=== PATIENT | female | born 1960 | race Caucasian/White ===

== ENCOUNTER 2019-03-21 09:56 | Inpatient (IN) | payer OTHER ==
[~2019-03-21] VITALS: Ht 177.8 cm; Wt 158.5 kg
[2019-03-21 10:05] VITALS: BP 166/78
[2019-03-21 11:06] LABS: ABSOLUTE BASOPHILS 0.1 thou/uL (0.0-0.2); ABSOLUTE EOSINOPHILS 0.2 thou/uL (0.0-0.7); ABSOLUTE LYMPHOCYTES 1.6 thou/uL (0.8-5.3); ABSOLUTE MONOCYTES 0.5 thou/uL (0.0-1.2); ABSOLUTE NEUTROPHILS 6.7 thou/uL (1.6-8.1); BASOPHILS 1.1 %; EOSINOPHILS 1.8 %; HEMATOCRIT 44.1 % (37.0-47.0); HEMOGLOBIN 14.5 gm/dL (12.0-15.0); LYMPHOCYTES 17.5 %; MCH 28.4 pg (26.0-34.0); MCHC 32.8 g/dL (28.0-37.0); MCV 86.7 fL (80.0-100.0); MPV 8.4 fl. (7.2-11.1); NUCLEATED RBCS 0 /100WBC; PLATELET COUNT* 503 thou/uL (150-400); POLYS 73.6 %; RBC 5.08 mil/uL (4.20-5.00); RDW-CV 17.6 % (10.5-14.5)
[2019-03-21 11:31] LABS: CALCIUM 9.2 mg/dL (8.5-10.1); POTASSIUM 4.4 mmol/L (3.5-5.1)
[2019-03-21 11:36] LABS: ALBUMIN 2.7 g/dL (3.4-5.0); TOTAL BILIRUBIN 0.4 mg/dL (<0.1-1.0); TOTAL PROTEIN 8.7 g/dL (6.4-8.2)
[2019-03-21 15:09] VITALS: BP 135/69
--- NOTE | 2019-03-21 17:15 | 2DMMODE ---
[place] [address] 2 D/M-MODE ECHOCARDIOGRAM Name: KEYANNA STYLES Room: [address] IN [facility]#: [id number] Admission: 03/21/19 Attend Phys: Ivana Baca, Discharge: Date of : 56 Date of Service: 03/21/19 1715 Report #: [id number] THIS REPORT FOR: //name// ADDENDUM APPROVED REPORT Study performed: 03/21/2019 16:09:05 EXAM: Comprehensive 2D, Doppler, and color-flow Echocardiogram Patient Location: In-Patient Room #: [facility] Status: routine BSA: 2.62 HR: 99 bpm BP: 130/64 mmHg Rhythm: NSR Other Information Study Quality: Fair Technically limited study due to body habitus, poor endocardial definition. Indications Hypertension/HDD EDEMA Echo Enhancing Agent Indication: Endocardial border delineation Agent(s) / Amount(s) Used: Optison 3 cc 2D Dimensions IVSd: 14.03 (7-11mm) LVOT Diam: 20.82 (18-24mm) LVDd: 54.17 mm PWd: 12.47 (7-11mm) LVDs: 38.21 (25-40mm) Aortic Root: 30.78 mm Aortic Valve AoV Peak Perez.: 1.96 m/s AO Peak Gr.: 15.39 mmHg LVOT Max P.02 mmHg AO Mean Gr.: 8.68 mmHg LVOT Mean P.85 mmHg LVOT Max V: 1.42 m/s AO V2 VTI: 36.68 cm LVOT Mean V: 1.04 m/s EMANUEL (VTI): 2.64 cm2 LVOT V1 VTI: 28.47 [place] [address] 2 D/M-MODE ECHOCARDIOGRAM Name: KEYANNA STYLES Room: [address] IN [facility].#: [id number] Admission: 03/21/19 Attend Phys: Ivana Baca, Discharge: Date of : 56 Date of Service: 03/21/19 1715 Report #: [id number] E/A Ratio: 0.72 MV Decel. Time: 226.14 ms MV E Max Perez.: 0.93 m/s MV PHT: 65.58 ms MVA (PHT): 3.35 cm2 Pulmonary Valve PV Peak Perez.: 1.21 m/s PV Peak Gr.: 5.83 mmHg Left Ventricle The left ventricle is normal size. There is normal LV segmental wall motion. Mild concentric left ventricular hypertrophy. Left ventricular systolic function is normal. The left ventricular ejection fraction is within the normal range. LVEF is 55-60%. Grade I - abnormal relaxation pattern. Right Ventricle The right ventricle is normal size. The right ventricular systolic function is normal. Atria The left atrium size is normal. The right atrium size is normal. Aortic Valve The aortic valve is normal in structure. No aortic regurgitation is present. There is no aortic valvular stenosis. Mitral Valve The mitral valve is normal in structure. There is no mitral valve regurgitation noted. No evidence of mitral valve stenosis. Tricuspid Valve Tricuspid valve is not well visualized. Unable to assess PA pressure. Trace tricuspid regurgitation. Pulmonic Valve Pulmonic valve is not well visualized. There is no pulmonic valvular regurgitation. Great Vessels The aortic root is normal in size. IVC is normal in size and collapses >50% with inspiration. Pericardium There is no [place] [address] 2 D/M-MODE ECHOCARDIOGRAM Name: KEYANNA STYLES Room: [address]#: [id number] Admission: 03/21/19 Attend Phys: Ivana Baca, Discharge: Date of : 56 Date of Service: 03/21/190 Report #: [id number] <Conclusion> Left ventricular systolic function is normal. The left ventricular ejection fraction is within the normal range. Mild concentric left ventricular hypertrophy. <ELECTRONICALLY SIGNED> By: Rubens Hoffman MD, [facility] 03/21/19 [id number] 14 Rubens Hoffman MD, [facility] /INF
[2019-03-21 20:45] VITALS: BP 117/57
[2019-03-22 04:13] LABS: HEMATOCRIT 41.2 % (37.0-47.0); HEMOGLOBIN 13.2 gm/dL (12.0-15.0); MCH 28.1 pg (26.0-34.0); MCHC 32.1 g/dL (28.0-37.0); MCV 87.6 fL (80.0-100.0); MPV 8.4 fl. (7.2-11.1); RBC 4.71 mil/uL (4.20-5.00); RDW-CV 17.4 % (10.5-14.5); WBC 11.3 thou/uL (4.0-11.0)
[2019-03-22 04:26] LABS: ALBUMIN 2.1 g/dL (3.4-5.0); CALCIUM 8.3 mg/dL (8.5-10.1); CREATININE 1.1 mg/dL (0.6-1.3); MAGNESIUM 2.1 mg/dL (1.8-2.4); TOTAL BILIRUBIN 0.3 mg/dL (<0.1-1.0); TOTAL PROTEIN 7.8 g/dL (6.4-8.2)
[2019-03-22 08:00] VITALS: BP 133/58
[2019-03-22 18:08] LABS: URINE BILIRUBIN NEGATIVE (Negative); URINE BLOOD NEGATIVE (Negative); URINE CLARITY CLEAR; URINE COLOR STRAW; URINE GLUCOSE-RANDOM NEGATIVE (Negative); URINE KETONES NEGATIVE (Negative); URINE LEUKOCYTES-REFLEX NEGATIVE (Negative); URINE NITRITE-REFLEX NEGATIVE (Negative); URINE PROTEIN NEGATIVE (Negative); URINE SPECIFIC GRAVITY 1.015 (1.005-1.030); URINE UROBILINOGEN 0.2 E.U./dl (0.2-1.0)
[2019-03-22 20:04] VITALS: BP 122/56
[2019-03-23 04:49] LABS: CALCIUM 8.4 mg/dL (8.5-10.1); CREATININE 1.1 mg/dL (0.6-1.3); MAGNESIUM 2.2 mg/dL (1.8-2.4); POTASSIUM 4.6 mmol/L (3.5-5.1)
[2019-03-23 06:00] LABS: HEMATOCRIT 41.3 % (37.0-47.0); HEMOGLOBIN 13.1 gm/dL (12.0-15.0); MCH 27.8 pg (26.0-34.0); MCHC 31.6 g/dL (28.0-37.0); MCV 87.8 fL (80.0-100.0); MPV 8.8 fl. (7.2-11.1); RBC 4.71 mil/uL (4.20-5.00); WBC 9.6 thou/uL (4.0-11.0)
[2019-03-23 08:00] VITALS: BP 129/65
[2019-03-23 19:24] VITALS: BP 117/49
[2019-03-24 04:54] LABS: HEMATOCRIT 39.4 % (37.0-47.0); HEMOGLOBIN 12.7 gm/dL (12.0-15.0); MCH 28.2 pg (26.0-34.0); MCHC 32.2 g/dL (28.0-37.0); MCV 87.5 fL (80.0-100.0); MPV 8.4 fl. (7.2-11.1); RBC 4.5 mil/uL (4.20-5.00); RDW-CV 17.5 % (10.5-14.5); WBC 9.5 thou/uL (4.0-11.0)
[2019-03-24 05:08] LABS: CALCIUM 8.5 mg/dL (8.5-10.1); CREATININE 1.1 mg/dL (0.6-1.3); MAGNESIUM 2.1 mg/dL (1.8-2.4)
[2019-03-24 05:09] LABS: POTASSIUM 3.5 mmol/L (3.5-5.1)
[2019-03-24 08:15] VITALS: BP 124/50
[2019-03-24 15:41] VITALS: BP 128/52
[2019-03-24 20:12] VITALS: BP 107/58
[2019-03-25 08:00] VITALS: BP 127/56
[2019-03-25 16:00] VITALS: BP 144/66
[2019-03-25 20:00] VITALS: BP 116/60
[2019-03-26 05:40] LABS: CALCIUM 8.4 mg/dL (8.5-10.1); CREATININE 1.1 mg/dL (0.6-1.3); MAGNESIUM 2.3 mg/dL (1.8-2.4); POTASSIUM 4.5 mmol/L (3.5-5.1)
[2019-03-26] MEDS ORDERED: GLUCOPHAGE500 MG PO (07:38)
[2019-03-26] MEDS ORDERED: KEFLEX500 M1 PO (07:38)
[2019-03-26] MEDS ORDERED: LASIX 40 MG TAB40 M1 PO (07:38)
[2019-03-26] MEDS ORDERED: PRINIVIL5 MG PO (07:38)
[2019-03-26] MEDS ORDERED: TRAMADOL 50 MG50 MG PO (07:38)
[2019-03-26 08:14] VITALS: BP 116/61
== END 2019-03-26 11:31 | disposition home or self-care (01) | DRG 602 ==
LOC: M.ERS 09:56 → M.TBA-ER 13:25 → M.ORTHSURG 13:25
PROVIDERS: Internal Medicine; Nurse Practitioner Family; ADMIT Internal Medicine
DX: L03.116 Cellulitis of left lower limb (principal); I50.31 Acute diastolic (congestive) heart failure; J96.01 Acute respiratory failure with hypoxia; Z68.43 Body mass index [BMI] 50.0-59.9, adult; J44.9 Chronic obstructive pulmonary disease, unspecified; L03.115 Cellulitis of right lower limb; F17.210 Nicotine dependence, cigarettes, uncomplicated; I87.8 Other specified disorders of veins; E11.65 Type 2 diabetes mellitus with hyperglycemia; E66.01 Morbid (severe) obesity due to excess calories; Z90.710 Acquired absence of both cervix and uterus; Z83.3 Family history of diabetes mellitus; Z82.49 Family history of ischemic heart disease and other diseases of the circulatory system; S81.802A Unspecified open wound, left lower leg, initial encounter; S81.801A Unspecified open wound, right lower leg, initial encounter; X58.XXXA Exposure to other specified factors, initial encounter; Y93.89 Activity, other specified; Y92.89 Other specified places as the place of occurrence of the external cause; Y99.8 Other external cause status